=== PATIENT | male | born 1940 | race Caucasian/White ===

== ENCOUNTER 2016-12-16 06:50 | Inpatient (IN) | payer MEDICARE, OTHER ==
[~2016-12-16] VITALS: Ht 177.8 cm; Wt 84.6 kg
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
--- NOTE | ~2016-12-16 | OR ---
PATIENT'S NAME: LUCHO JONES [facility] AGE: 76 Y [address] ROOM: [place] [id number] LOCATION: [facility] ADMIT DATE: 12/16/2016 OR/Procedure Report DISCHARGE DATE: FAMILY PHYSICIAN: Ahmet Sandoval MD ATTENDING PHYSICIAN: Ahmet Sandoval SURGEON: Eugene Escudero MD PODIATRIST ORTHOPEDIC: DATE OF PROCEDURE: 12/17/2016 PREOPERATIVE DIAGNOSIS: Intertrochanteric fracture right hip. POSTOPERATIVE DIAGNOSIS: Intertrochanteric fracture right hip. PROCEDURE PERFORMED: Open reduction and internal fixation of right hip intertrochanteric fracture with intramedullary device (gamma nail). ANESTHESIA: General endotracheal anesthesia. ESTIMATED BLOOD LOSS: Less than 100 mL. IMPLANTS: Standard 125 degree gamma nail with 110 mm lag screw and 42.5 mm distal interlocking screw. DRAINS: None. SPECIMEN: None. COMPLICATIONS: None. INDICATION FOR PROCEDURE: Please refer to my separately dictated consultation note. The patient presents with a right hip intertrochanteric fracture. Operative and nonoperative options have been reviewed. Potential adverse sequelae of the injury itself have been reviewed. Risks, benefits, limitations, and indications for surgery have been thoroughly reviewed and informed consent has been granted. We have specifically reviewed risks and implications of the following: infection, malunion, nonunion, deep venous thrombosis, pulmonary embolism, mortality, neurovascular complications, blood transfusion risks, decubitus ulcer formation, pneumonia, avascular necrosis, and the potential need for further surgery (including the potential need for salvage with hip hemiarthroplasty versus total hip arthroplasty). We have discussed the necessity for 2 months of restricted weightbearing postoperatively. A preoperative internal medicine consultation has been obtained, and the patient has been medically cleared for surgery. DESCRIPTION OF PROCEDURE: The patient was positioned supine on the fracture PATIENT'S NAME: LUCHO JONES [facility] AGE: 76 Y [address] ROOM: [place] [address] LOCATION: [facility] ADMIT DATE: 12/16/2016 OR/Procedure Report DISCHARGE DATE: FAMILY PHYSICIAN: Ahmet Sandoval MD ATTENDING PHYSICIAN: Ahmet Sandoval table after administration of anesthesia and prophylactic antibiotics. The correct side and anticipated procedure were confirmed via a verbal timeout including myself, the car rental sales assistant, and the circulating nurse. A well-padded groin post was placed. Both feet and ankles were well padded. The left foot was placed into a stirrup-type leg correia. The right foot was placed into a traction boot. Under fluoroscopic guidance, gentle longitudinal traction and internal rotation were applied across the fracture site through the right foot until a suitable reduction had been confirmed under AP and lateral fluoroscopic imaging. The lateral aspect of the right hip and thigh were scrubbed, prepped, and draped with vigilant sterile technique. The tip of the right greater trochanter was approached through a 5 cm direct lateral longitudinal incision. The iliotibial band was sharply divided longitudinally in line with the overlying skin incision. The tip of the right greater trochanter was palpated, and a cannulated awl was utilized to access the intramedullary canal of the proximal femur through the tip of the right greater trochanter. A ball tipped guidewire was placed through the awl and across the fracture site under fluoroscopic guidance, and the awl was subsequently removed. The cannulated entrance reamer was utilized through the appropriate soft tissue guide. The gamma nail was seated to the appropriate depth over the guidewire, and the guidewire was extracted. Fluoroscopic imaging confirmed appropriate position of the gamma nail. The outrigger guide and guide cannula were subsequently utilized to place a threaded-tipped guidewire centrally within the right femoral head and neck through a separate direct lateral 2 cm longitudinal incision. Appropriate position of the guidewire was confirmed under AP and lateral fluoroscopic imaging. Appropriate depth for the lag screw was measured. The cannulated reamer was set to the appropriate depth and fully seated through the appropriate soft tissue guide. The lag screw was seated to the appropriate depth under AP and lateral fluoroscopic guidance. The anti-rotational set screw was deployed. The outrigger guide and cannula were subsequently utilized to place the distal interlocking screw through a separate 5 mm direct lateral longitudinal incision. AP, lateral, and oblique fluoroscopic imaging of the right hip and right proximal femur confirmed appropriate position of all hardware and maintenance of an appropriate reduction of the fracture. Each of the 3 incisions was thoroughly irrigated with bacteriostatic saline PATIENT'S NAME: LUCHO JONES [facility] AGE: 76 Y [address] ROOM: [address] [place] [address] LOCATION: [facility] ADMIT DATE: 12/16/2016 OR/Procedure Report DISCHARGE DATE: FAMILY PHYSICIAN: Ahmet Sandoval MD ATTENDING PHYSICIAN: Ahmet Sandoval. The fascia was closed with simple deep interrupted 0 Vicryl sutures. Each of the incisions was closed with superficial buried interrupted 2-0 Vicryl sutures and surgical socorro. The dressings consisted of Xeroform gauze, sterile gauze, and occlusive tape. There were no complications. The patient was carefully transferred off the fracture table and transported to the postanesthesia care unit in stable condition. MD TIA HORTON/kassie /[id number] d: 12/17/16 1154 t: 12/24/16 1204, OPERATIVE SUMMARY
--- NOTE | ~2016-12-16 | CON ---
PATIENT'S NAME: LUCHO JONES [facility] AGE: 76 Y [address] ROOM: [place] [id number] LOCATION: [facility] ADMIT DATE: 12/16/2016 Consultation DISCHARGE DATE: FAMILY PHYSICIAN: Ahmet Sandoval MD ATTENDING PHYSICIAN: Ahmet Sandoval REFERRING PHYSICIAN: ALEXEI MOREL MD HISTORY OF PRESENT ILLNESS: Dr. Sandoval has requested that I provide an inpatient consultation on this 76- year-old male, who was admitted earlier today after having been diagnosed with a right hip fracture. He tripped and fell at home on the morning of admission. He states that he stubbed his left toe and fell onto his right side. He was unable to bear weight because of severe right hip pain. He crawled on his elbows to call for help. He was taken to the emergency room where plain radiographs demonstrated no conclusive fracture. A CT scan was obtained. This confirmed a basicervical proximal femur fracture. Dr. Sandoval admitted the patient and consulted me. The patient denies pain elsewhere as a result of the incident. He sustained a skin tear at the right elbow. The patient states that Dr. Sandoval has already attended to this. The patient's past orthopedic history is significant for having undergone open reduction and internal fixation of the contralateral hip. The patient states that his left hip is doing well. He states that the left hip has improved significantly since I last saw him. MEDICATIONS: On admission: 1. Tylenol. 2. Carmex. 3. Januvia. 4. Glucophage. 5. Synjardy. 6. Ascorbic acid. 7. Bydureon. ALLERGIES: OXYCODONE. ACTIVE MEDICAL PROBLEMS: Cyo-[id number] diabetes mellitus. PAST SURGICAL HISTORY: Open reduction and internal fixation of left hip. REVIEW OF SYSTEMS: PATIENT'S NAME: LUCHO JONES [facility] AGE: 76 Y [address] ROOM: [address] [address] LOCATION: [facility] ADMIT DATE: 12/16/2016 Consultation DISCHARGE DATE: FAMILY PHYSICIAN: Ahmet Sandoval MD ATTENDING PHYSICIAN: Ahmet Sandoval He denies chest pain or shortness of breath. He reports a history of low- grade preexisting right hip pain. He denies history of deep venous thrombosis. PHYSICAL EXAMINATION: GENERAL: Alert, oriented, well-hydrated, well-nourished, pleasant, cooperative male who is in no distress. EXTREMITIES: There is a gauze dressing on the right elbow, which is dry and intact. He demonstrates no pain with range of motion of either elbow. There is a superficial abrasion at the left elbow. There is pain with gentle passive range of motion of the right hip. There is no pain with passive range of motion of the left hip. There were no active skin lesions, masses, or swelling over the right hip. There is tenderness at the right hip greater trochanter. There is no pain with passive range of motion of the left hip. There is no calf swelling or tenderness or peripheral edema in either lower extremity. He is able to actively dorsiflex and plantar flex the right ankle with 4/5 motor strength. 1+ dorsalis pedis pulse on the right. RADIOGRAPHS: Plain radiographs of the right hip demonstrate a defect at the lateral aspect of the femoral neck on the AP view. This is very subtle. CT scan images of the right hip demonstrate a nondisplaced right hip basicervical- intertrochanteric fracture. IMPRESSION: Nondisplaced right hip basicervical-intertrochanteric fracture. RECOMMENDATIONS: I have discussed the operative and nonoperative options. I have recommended open reduction and internal fixation. I have discussed risks, benefits, limitations, and alternatives to this procedure with the patient as well as his son. We have specifically discussed the potential for infection, deep venous thrombosis, pulmonary embolism, mortality, neurovascular complications, blood transfusion risks, malunion, nonunion, avascular necrosis, and potential need for further surgery (including the potential need for salvage with arthroplasty). The patient has been placed at bedrest. Mechanical DVT prophylaxis has been initiated. We will proceed with surgery first thing tomorrow morning (pending operating room availability and medical clearance). All the patient's questions and concerns (as well as those of his son) were answered to their mutual satisfaction. PATIENT'S NAME: LUCHO JONES [facility] AGE: 76 Y [address] ROOM: [id number] [place] [address] LOCATION: [facility] ADMIT DATE: 12/16/2016 Consultation DISCHARGE DATE: FAMILY PHYSICIAN: Ahmet Sandoval MD ATTENDING PHYSICIAN: Ahmet Sandoval MD TIA HORTON/kassie /[id number] d: 12/17/16 0510 t: 12/24/16 1202, CONSULTATION REPORT
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
--- NOTE | ~2016-12-16 | DS ---
PATIENT'S NAME: YOVANI JONES [facility] AGE: 76 Y [address] ROOM: [facility] [place], [place] [address] LOCATION: [facility] ADMIT DATE: 12/16/2016 Discharge Summary DISCHARGE DATE: FAMILY PHYSICIAN: Holger Sandoval MD ATTENDING PHYSICIAN: Holger Sandoval HISTORY OF PRESENT ILLNESS: Yovani Jones entered to the hospital after a fall at his home on the last Monday. He was taken to the emergency room at [facility] via the ambulance where he was diagnosed by Dr. Whitmore with a right hip fracture at the trochanter. Dr. Escudero was consulted and he indicated that Luis Miguel should have a repair of that fracture in order to heal and again walk appropriately. I put Mr. Jones in the hospital on an inpatient basis and started him on some pain medication, at bed rest, appropriate fluids, and routinely n.p.o. until Dr. Escudero could see him. Dr. Escudero had an extremely busy day and did not see him till late in the day. He is scheduled surgery for early next morning, where he is still on an intermediate sliding insulin scale due to his diabetes and he was able to eat the first evening and of course he became n.p.o. again afterwards. We held this regular diabetic medicine with the intermediate scale until after surgery at which time, we restarted the Januvia type medication and metformin. Blood sugars fell on line rather quickly. Due to an unfortunate episode, he has had in the past secondary to hydrocodone, I elected to give him only morphine, Tylenol, and tramadol very sparingly in order to avoid the difficulty he had several years ago with apparently a type of response following the above-mentioned medications. He tuft that as best he could with this. 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 Escudero following that. So, Luis Miguel was very hesitant right from the beginning about being able to put any pressure on his left leg and of course his right leg has just been repaired any ambulation at all with a big concern. Over the last 2 days, he has managed to stand up and move a little bit but is extremely difficult for him to do so. He is essentially quite dealing with 2 fractured hips at the same time. He has made little progress yesterday. Of course, he is still limited with the pain medication that he takes. Couple of nights, he is not sleeping well, so we added some Flexeril and cyclobenzaprine and that seems to help a little bit. I was little concerned on the day of dismissal as to whether not he was getting just slightly confused, I think if he moved to [place], it will be good. His is also a resident of [place] where she is a long-term inpatient for end-stage Alzheimer disease. At this time, Luis Miguel is transferring to [place], he spent sometime there before. His mother resided there. His is there now and he goes with a positive attitude. I promised him I would talk with the physical therapy people before PATIENT'S NAME: YOVANI JONES [facility] AGE: 76 Y [address] ROOM: [place] [id number] LOCATION: [facility] ADMIT DATE: 12/16/2016 Discharge Summary DISCHARGE DATE: FAMILY PHYSICIAN: Holger Sandoval MD ATTENDING PHYSICIAN: Holger Sandoval he arrive, so that they are aware of the problems he has with both hips, not just one in order to facilitate his recovery. FINAL DIAGNOSIS: Right hip fracture; contributing difficulties are diabetes and a prior diagnosis of lymphoma, which at the current time is on remission. HOLGER SANDOVAL MD JDN/modl /[id number] d: 12/20/16 1001 t: 12/30/16 1106, DISCHARGE SUMMARY
[~2016-12-16 06:50] MED LIST: ACETAMINOPHEN500 M1 PO; BYSTOLIC10 MG PO; CARMEX TOP; CLEOCIN HCL300 MG PO; CLEOCIN150 MG PO; FLEXERIL10 MG PO; GLUCOPHAGE500 MG PO; GLUCOSAMINE HC500 MG PO; INVOKANA300 MG PO; JANUVIA 100 MG100 MG PO; KEFLEX500 MG PO; THERAGRAN-M1 TAB PO; TRADJENTA5 MG PO
[2016-12-16 09:14] LABS: BASOPHIL % 0.3 %; EOSINOPHIL # 0.1 K/uL (0.0-0.5); EOSINOPHIL % 1.1 %; HEMATOCRIT 35.7 % (37.0-53.0); HEMOGLOBIN 11.8 g/dL (11.0-16.0); IMMATURE GRANULOCYTE % 0.3 %; LYMPHOCYTE # 1.1 K/uL (0.8-4.0); LYMPHOCYTE % 9.2 %; MCH 31.9 pg (27.0-34.0); MCHC 33.1 gm/dL (32.0-36.5); MCV 96.5 fl (83.0-98.0); MONOCYTE % 8.4 %; MPV 9.4 fl (9.4-12.4); NEUTROPHIL # (ANC) 9.3 K/uL (1.4-9.0); NEUTROPHIL % 80.7 %; NRBC % 0 /100WBC (0-0.00); PLATELET COUNT 126 K/uL (150-450); RDW-CV 13.1 % (11.9-14.6); WBC 11.5 K/uL (4.0-11.0)
[2016-12-16 09:23] LABS: INR - (THERAPEUTIC) 0.91 (0.92-1.07); PROTIME 9.5 SECONDS (9.8-11.4); PTT 25 SECONDS (25-32)
[2016-12-16 09:30] LABS: ALBUMIN 3.9 gm/dL (3.5-5.0); ANION GAP 11.9 (10.0-19.0); BLOOD UREA NITROGEN 21 mg/dL (6-24); CALCIUM 8.7 mg/dL (8.5-10.5); CHLORIDE 109 mMol/L (96-110); CO2 26 mMol/L (22-32); CREATININE 0.6 mg/dL (0.6-1.3); ESTIMATED GFR (MDRD EQUATION) > 60; POTASSIUM 3.9 mMol/L (3.7-5.1); SODIUM 143 mMol/L (135-145)
[2016-12-16] MEDS ORDERED: GLUCOPHAGE XR500 M1 PO (12:10)
[2016-12-16] MEDS ORDERED: SYNJARDY 12.5-1 EACH PO (12:10)
[2016-12-16] MEDS ORDERED: ASCORBIC ACID500 MG PO (12:12)
[2016-12-16] MEDS ORDERED: BYDUREON2 MG IM (12:14)
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
[2016-12-16 14:12] LABS: BILIRUBIN URINE NEGATIVE (NEGATIVE); BLOOD URINE NEGATIVE /UL (NEGATIVE); COLOR URINE YELLOW (YELLOW); GLUCOSE URINE 1000 mg/dL (NEGATIVE); KETONE URINE 150 mg/dL (NEGATIVE); LEUKOCYTES URINE NEGATIVE /UL (NEGATIVE); NITRITE URINE NEGATIVE (NEGATIVE); PROTEIN URINE NEGATIVE (NEGATIVE); SPEC GRAVITY URINE 1.015 (1.003-1.035); TURBIDITY URINE CLEAR (CLEAR); UROBILINOGEN URINE NORMAL (NORMAL)
--- NOTE | 2016-12-16 16:03 | NUR ---
Pt admitted to NTU from ER with right fractured hip. He is alert and oriented. NPO for possible OR this afternoon. Awaiting Dr Escudero to see pt. Anesthesia visit done. Pt voided 500 ml and dawson will be inserted. He had MS 2 mg IV at 1520 for pain rated at 4 and now rated at 2. He has diabetic neuropathy bilat feet and some tingling left had from previous OR. He has unaccessed left chest port from previous chemotherapy. IV in Rt hand. IS use at 3000 and he is on room air. Pt says he crawled after fall to get to phone and in doing so, got abrasions Rt elbow and left upper that were cleaned and bandaged in ER. Small scrape Rt knee. slight bruise Rt hip. Good Rt pedal pulse, dorsal/plantar flexion good, no edema, good sensation to touch.
--- NOTE | 2016-12-16 17:14 | NUR ---
Pt is on ADA diet now and NPO in morning for dining room host/hostess OR according to Dr Escudero. Pt had 4 beat run of V-tach reported by Tele about 1645. Pt had no symptoms. Printout in the chart.
--- NOTE | 2016-12-17 04:44 | NUR ---
Significant Event: Alert and oriented X3. Vital signs stable. Lungs diminished in bases though sats at 96-99% on RA. Neuropathy to bilateral feet. 1+ pedal pulses, is able to dorsi/planar flex. Ken catheter placed at 2044 without difficulty, adequate output this shift. See I/O screen for accurate amount. Dressings to L upper arm and R elbow are CDI. Small abrasion to R) knee. Port to L chest unaccessed. 1/2NS c 20 KCL running at 125ml/hr to R) hand IV. Pt has been NPO since midnight. Pt refuses to have nurse assist with repositioning, states he is able to move himself with use of trapeze. Pt educated of risk of developing pressure sores without adequate repositioning and improtance of, pt verbalizes understanding. Continuing to enourage repositioning q 2 hr. Ultram given for pain last at 2340. Morphine given X1, will give again around 0500. Has been NPO since midnight. Permit signed and checklist started. Plan is for surgery at 0730. Follow up:
--- NOTE | 2016-12-17 17:40 | NUR ---
Pt went to OR and back at 1015. He is alert and oriented. He has rated pain up to 8 with activity and now down to 3. MS x1 AT 1300 and Ultram 2 tabs at 1330. Accucheck last was 146. He has had juice, jello and sauce. Plans to eat supper. 3 mepilex dressings Rt hip dry and intact. CSM Rt leg WNL except for normal neuropathy for him. 950 out of dawson. Uses IS hrly. Pt got up in chair at 1300 with 2 assist. He is strict Toe touch Wt bear on Rt. Was scared about transfer as has had problems with left hip. Did fair. VS will be routine for you. Be cautious with the PRN and the scheduled tylenol order that he doesn't exceed 4000 mg in 24 hrs. Pt is on room air.
--- NOTE | 2016-12-18 04:30 | NUR ---
Significant Event: A&Ox3, Hypotension, BP: 94/50-109/55. Neuro/CSM checks to RT leg intact with no changes this shift. Up to chair at shift change. Transfers with 2PA, walker/GB. Stiff. Great output this, dawson to be removed this AM. Scheduled tylenol, flexeril, and morphine given for pain. PRN milk of mag to be given as last BM was 12/15. Refuses repositioning at times, other mccallum pleasant and cooperative with cares. Follow up: monitor for BM.
[2016-12-18 05:02] LABS: HEMATOCRIT 31.1 % (37.0-53.0)
--- NOTE | 2016-12-18 16:06 | NUR ---
Significant Event: PT A&O x3. VSS, on room air. IV accidentally dc'd by PT, ok to leave out per MD. PT ambulates with walker, gait belt and 2 assist. Dressing c/d/i. Pain controlled with scheduled tylenol and ultram PRN last at 1330. Voiding without difficulties. Follow up:
--- NOTE | 2016-12-19 03:27 | NUR ---
Pt A&Ox3, VSS on RA. Voiding and taking PO without difficulty. Up with 1-2A walker and GB. Pain well controlled with tramadol and scheduled tylenol, see EMAR. CSM/neuros intact. Dressings to right hip CDI. Pt pleasant and cooperative with cares.
--- NOTE | 2016-12-19 12:34 | NUR ---
Introduced self and CM role to Yovani and a friend that was at bedside. Yovani, Luis Miguel, tells me that prior to this he was living at home alone in [place]. His ultimate goal is to be able to return home when he is able to care for himself again. I did let him know that I got a consult from Dr. CASEY Sandoval to talk with him about SNF placement upon discharge. Luis Miguel tells me that he is open to "do whatever I have to do in order to get home after all of this is done with." I let him know on the consult, DR. CASEY Sandoval had wrote for either [facility], [facility] or [facility]. Explained to him that [facility] was closing so they were not able to accept patients. Luis Miguel then shared with me that he is currently a resident at [facility] so that would be his first preference, if they couldn't accept then he would like to see what [facility] had to offer. I let him know that I would call and see what [facility] said about possible acceptance and then update him accordingly. He was fine with this. He also tells me that he has good support from his son and he will be able to help him out with anything that he might need. I gathered information from his chart and [employer] to fax a referral to SNFs. I called and talked with Debra at [facility], she tells me that they would be happy to take a look at the referral to see if they could accept and meet his needs. Referral was faxed. She will call me once they go over the information and let me know if they can take him or not. Packet started, orders printed and no ID Screen is done yet as I am not for sure which facility will be able to meet his needs. CM to continue to follow and assist. Plan SNF placement.
--- NOTE | 2016-12-19 14:10 | NUR ---
[facility] note 1300 Offered Booklet on Diabetes management, patient states "...I don't want that book, it will just go in the garbage!!" CDE asks the questions on the Diabetes Survival Skills checklest and CDE completes this for patient. Patient states he doesn't check his feet because he states that he has alot of other medical conditions that are going to kill him first, he's not worried about his diabetes. Education provided on all topics and patient states he only checks his blood sugar once per day, first thing in the a.m. Encouraged to check after a meal once in a while, states he is so busy and he is going all day, [facility] [place]. Discussed A1C of 7.9 %, states "...I can't hardly believe that because my blood sugar in the morning are "always good" and last weeks average blood sugar was 136". Explained that blood sugars maybe elevated after meals, but if he is not testing at that time, then we would not be able to see that post meal blood sugar, thus the recommendation to check after a meal on occassion. Patient states he sees Dr. Sandoval once per week on a Monday to get his Bydureon shot for his diabetes, also takes oral medication Metformin and Januvia. Patient states "I just do everything that my Doctor tells me to". Discussed need for proper control of blood sugars to assist in wound healing and reduce risks of infection post operatively. Patient states understanding teaching provided. Survival Skills checklist placed on chart.
--- NOTE | 2016-12-19 16:52 | NUR ---
Significant Event: Patient A/O x 3. Chronic N/T to L) hand. Room Air. Toe touch weight bearing on R) leg, 2A pivot. Diabetic diet. Accu checks ACHS. 1300mg acetaminophen q8hr for pain. Dressings BUE and R) hip. Follow up: Swingbed tomorrow morning.
--- NOTE | 2016-12-20 05:01 | NUR ---
Significant Event: The Patient is Alert and Oriented x3. Chronic N/T to bilateral hands and feet. Moves all extremities spontaneously and to command. Up with 1 assist, Gaitbelt, Walker. TTWB with the Right Leg. Dressing to the the right hip/thigh C/D/I. VSS. On room air. Pain to the Right hip gave Ultram last at 0329. Accu checks ACHS. Abrasions to bilateral arms covered with dressings. No IV access per MD. Follow up: Transfer to SNF today at 11
--- NOTE | 2016-12-20 11:08 | NUR ---
Significant Event: PT ALERT AND ORIENTED X3. CHRONIC NUMBNESS/TINGLING TO HANDS/FEET. TOE-TOUCH WEIGHT BEARING TO R)LEG; TRANSFERS WITH 1-ASSIST/GAIT BELT/WALKER. VOIDS PER BATHROOM/URINAL. LAST BM ON 12/19. ABRASIONS TO ELBOWS/ARMS-COVERED WITH DRESSING. AC/HS ACCUCHECKS. SCHEDULED TYLENOL HAS BEEN HELPING WITH PT'S PAIN. TAKES MEDICATIONS WHOLE WITH WATER. DIABETIC DIET. MEPILEX DRESSINGS X3 TO R)THIGH/HIP. HAS BEEN UP IN THE CHAIR SINCE SHIFT CHANGE THIS MORNING. Follow up: PLAN TO TRANSFER PT TO [facility] THIS MORNING ABOUT 1100 PER BLOOD BANK LABORATORY TECHNICIAN; REPORT WILL BE CALLED AND GIVEN TO RECEIVING NURSE; TRANSFER PACKET WILL BE SENT WITH PT.
--- NOTE | 2016-12-20 13:06 | NUR ---
Social visit with Luis Miguel this morning, he is still in agreement with going to [facility] today. He tells me that Dr. Sandoval came by this morning and visited with him and he is happy that he is going to [facility]. I let him know that the van should still be here around 1100 to pick him up. He was fine with this. Orders were faxed over to [facility] prior to his dismissal. RN to RN number was given to primary care RN Samantha to call in report prior to him leaving. Dr. Sandoval will continue to follow at [facility] so no MD to MD report will need to be done. No other questions, needs or concerns. Luis Miguel tells me he talked with his son and updated him so I don't have to call and talk with him about plans to go to [facility] today. CM to continue to follow and assist. Plan for [facility] today.
== END 2016-12-20 11:49 | DRG 482 ==
LOC: GACC 06:50 → GNTU 10:30
PROVIDERS: Orthopaedic Surgery; ADMIT Family Medicine
PROC: 0QS606Z Reposition Right Upper Femur with Intramedullary Internal Fixation Device, Open Approach (ICD-10-PCS; principal; 2016-12-17)
DX: S72.101A Unspecified trochanteric fracture of right femur, initial encounter for closed fracture (principal); E11.9 Type 2 diabetes mellitus without complications; I10 Essential (primary) hypertension; W19.XXXA Unspecified fall, initial encounter; Z85.72 Personal history of non-Hodgkin lymphomas; Z96.653 Presence of artificial knee joint, bilateral
CPT/HCPCS: C1713; G0378; J0690; J1650; J2270; J3010; J3360; J3480